=== PATIENT | male | born 1980 | race Caucasian/White ===

== ENCOUNTER 2020-12-25 11:00 | Emergency (ER) | payer SELFPAY ==
[2020-12-25 12:04] LABS: BASOPHIL 0.2 % (0-2); EOSINOPHIL 1.1 % (0-5); HGB 16.9 g/dl (13.2-18.0); LYMPHOCYTE 22.4 % (15-48); MCH 28.2 pg (25.0-31.0); MCHC 32.5 g/dL (32.0-36.0); MCV 86.8 fL (78.0-100.0); MONOCYTE 8.8 % (0-12); MPV 10.2 fL (6.0-9.5); NEUTROPHIL 67.3 % (41-80); NRBC 0; PLT 313 K/uL (150-400); RBC 5.99 M/uL (4.70-6.00); RDW 13.2 % (11.5-14.0); WBC 8.2 K/uL (4.0-10.5)
[2020-12-25 12:07] LABS: BILIRUBIN NEGATIVE (NEGATIVE); BLOOD NEGATIVE Ery/uL (NEGATIVE); CLARITY HAZY (CLEAR); COLOR YELLOW (YELLOW); GLUCOSE (U) NORMAL (NORMAL); LEUKOCYTES NEGATIVE Leu/uL (NEGATIVE); NITRITE NEGATIVE (NEGATIVE); PROTEIN NEGATIVE (NEGATIVE); SPECIFIC GRAVITY 1.025 (1.001-1.030); UROBILINOGEN 0.2 mg/dL (0.2-1.0); pH 6.5 (5.0-9.0)
[2020-12-25 12:35] LABS: ALBUMIN 3.7 g/dL (3.4-5.0); BILIRUBIN - TOTAL 0.4 mg/dL (0.2-1.0); BUN/CREAT RATIO (CALC) 8.5 RATIO; CREATININE 0.82 mg/dL (0.67-1.17); GLOBULIN (CALCULATION) 4.1 g/dL; POTASSIUM 4.4 mmol/L (3.5-5.1); TOTAL PROTEIN 7.8 g/dL (6.4-8.2)
[2020-12-25] MEDS ORDERED: NORCO 5-325 TA1 EACH PO ×2 (14:34→14:36)
[2020-12-25] MEDS ORDERED: ZOFRAN4 M1 PO ×2 (14:34→14:36)
== END 2020-12-25 14:50 | disposition home or self-care (01) ==
LOC: FER 11:00
PROVIDERS: Emergency Medicine
DX: R10.13 Epigastric pain (principal); R11.0 Nausea; Z87.19 Personal history of other diseases of the digestive system; Z90.49 Acquired absence of other specified parts of digestive tract
CPT/HCPCS: 36415; 80053; 81003; 82150; 83690; 85025; J2405; J7030